=== PATIENT | female | born 1955 | race Caucasian/White ===

== ENCOUNTER 2019-12-27 05:56 | Day surgery (SDC) | payer BC ==
[2019-12-23 11:19] VITALS: BMI 26.6
--- NOTE | 2019-12-24 08:53 | HP ---
ANTICIPATED DATE OF SURGERY: She is scheduled for surgery on 12/27/2019. HISTORY OF PRESENT ILLNESS: Ms. Swain is a 64-year-old white female with previous complete hysterectomy, who has been noticing increasing vaginal bulge. She has no issues with her bowel movements but does have to bend over in certain positions to fully empty her bladder. She denies any stress incontinence issues. She has been doing Kegel exercises. She was seen in my office on 11/16 for evaluation. Noted at that time, she had a significant midline cystocele, grade 2 to 3. The upper vault was supported. PAST MEDICAL HISTORY: Significant for hypothyroidism; chronic hypertension; hyperlipidemia; rosacea; and a remote history of a lupus in the early , where she had apparent hemolytic anemia and DIC event. Currently, she has been with no evidence of reactivation of her lupus. PAST SURGICAL HISTORY: Tonsil, adenoids, TOMMY-BSO, colonoscopy, and LASIK surgery. CURRENT MEDICATIONS: 1. Synthroid 50 mcg per day. 2. Amlodipine 5 mg per day. 3. Pravastatin 20 mg per day. 4. Premarin 0.3 mg daily. 5. Sertraline 50 mg daily. 6. 1% facial cream. 7. Calcium. 8. Multivitamin. 9. Vitamin D. 10. Vitamin B12. ALLERGIES: 1. TYLENOL NO. 3. 2. ATIVAN. 3. CT SCAN DYE. 4. BUSPAR. THESE ALL WERE POSSIBLE INTERACTION WHEN SHE HAD AN OVERALL BODY ALLERGIC REACTION DURING THE HOSPITALIZATION CENTERED AROUND THE LUPUS ISSUE. SOCIAL HISTORY: She is a nonsmoker. No excessive alcohol use. She is a nurse. FAMILY HISTORY: Noncontributory. PHYSICAL EXAMINATION: VITAL SIGNS: Her height is 5 feet 4 inches, weight 159 pounds, BMI 27.3, blood pressure 120/72, pulse regular at 66, respiratory rate 18, and O2 saturation on room air 98%. HEENT: Within normal limits. CHEST: Clear to auscultation. HEART: Regular rate and rhythm, S1 and S2 heart sounds. No murmurs, rubs, or gallops. ABDOMEN: Soft, nontender, nondistended with no palpable masses. PELVIS: Vulva and vagina had no lesions. Vaginal vault was supported. She had a significant grade 2 to 3 cystocele. Minimal rectocele. No vaginal lesions were noted. No pelvic masses were noted. ASSESSMENT: This is a 64-year-old white female with previous hysterectomy with symptomatic grade 2 to 3 cystocele. PLAN: Plan is for an anterior repair scheduled for 12/27/2019. Risks and benefits of surgery have been discussed in detail. She is set for surgery. Job ID: [id number]
[2019-12-27] MEDS ORDERED: Fentanyl 100 MCG/2 ML VIAL ONE (06:42)
[2019-12-27] MEDS ORDERED: SUGAMMADEX SODIUM 200 MG/2 ML VIAL ONE (06:42)
[2019-12-27] MEDS ORDERED: Lidocaine 1% w/Epinephrine 1:100K 20 ML VIAL ONE (06:43)
[2019-12-27] MEDS ORDERED: Multivit, Therapeutic 1 TAB PO SCH (09:00)
[2019-12-27] MEDS ORDERED: Amlodipine 5 MG TAB PO SCH (09:00)
[2019-12-27] MEDS ORDERED: IVERMECTIN TOP SCH (09:00)
[2019-12-27] MEDS ORDERED: Cholecalciferol 1,000 UNITS (25 MCG) TAB PO SCH (09:00)
[2019-12-27] MEDS ORDERED: Cyanocobalamin (Vitamin B-12) 1,000 MCG TAB PO SCH (09:00)
[2019-12-27] MEDS ORDERED: Losartan 25 MG TAB PO SCH (09:00)
[2019-12-27] MEDS ORDERED: Calcium Carbonate 600 MG TAB PO SCH (09:00)
[2019-12-27] MEDS ORDERED: Estrogens, Conjugated 0.3 MG TAB PO SCH (09:00)
--- NOTE | 2019-12-27 09:05 | OP ---
DATE OF PROCEDURE: 12/27/2019 PREOPERATIVE DIAGNOSES: 1. Symptomatic grade 3 cystocele. 2. Prior hysterectomy. POSTOPERATIVE DIAGNOSES: 1. Symptomatic grade 3 cystocele. 2. Prior hysterectomy. PROCEDURE PERFORMED: Anterior repair. INTERVENTIONAL RADIOLOGY TECHNOLOGIST SURGEON: SPENCER Arriaga. ANESTHESIA: General. ESTIMATED BLOOD LOSS: Less than 25 mL. COMPLICATIONS: None. COUNTS: Correct x2. ANTIBIOTICS: 2 g Ancef on-call to the OR. FINDINGS: Anterior cystocele defect was reduced with clear urine returning from Etienne catheter postprocedure. DISPOSITION: Recovery room, stable. DESCRIPTION OF PROCEDURE: The patient previously received informed consent in regard to surgery. She was taken back to the operating room, where she received a general anesthetic agent without complications. She was placed in dorsal lithotomy position with the use of John stirrups and prepped and draped in usual sterile fashion. Etienne catheter was placed at this time. A weighted speculum was placed in the vagina and the vaginal cuff line was grasped at the two corners with Allis clamps. The anterior vaginal mucosa was infiltrated with 1% lidocaine with epinephrine. A vertical midline incision starting at the vaginal cuff up to 1.5 cm from the urethral meatus was made with Metzenbaum scissors. The edges of the anterior vaginal mucosa were grasped with Allis clamps to provide counter traction. The cystocele defect was dissected both sharply and bluntly, reducing the cystocele in its entirety. 0 Vicryl suture was then utilized to plicate the endopelvic fascia, starting most closely to the urethral meatus, plicating that in the midline with [id number] sutures. Once the cystocele defect had been repaired with numerous 0 Vicryl sutures, the anterior vaginal mucosa was then closed. Interrupted [id number] sutures of 2-0 Vicryl incorporating some of the endopelvic fascia were placed and the elongated vaginal mucosa near the apex was trimmed to allow for better vaginal mucosal closure. Hemostasis was confirmed. Clear urine was draining from the Etienne catheter. A moistened Kerlix was then utilized to pack the vaginal vault. The patient was awakened from anesthesia and transferred to recovery room in stable condition. Job ID: [id number]
[2019-12-27] MEDS ORDERED: Bisacodyl 10 MG SUPP PR PRN (09:55)
[2019-12-27] MEDS ORDERED: Simethicone Chewable 80 MG TAB PO PRN (09:55)
[2019-12-27] MEDS ORDERED: Ondansetron PF 4 MG/2 ML Vial IVP PRN (09:55)
[2019-12-27] MEDS ORDERED: diphenhydrAMINE 25 MG CAP PO PRN (09:55)
[2019-12-27] MEDS: Ketorolac Tromethamine 30 MG/ML VIAL IVP SCH ×3 (10:54→22:59)
[2019-12-27] MEDS ORDERED: Atropine Sulfate 0.4 mg/1 ml Vial ONE (12:26)
[2019-12-27] MEDS ORDERED: PROPOFOL 200 MG/20 ML VIAL ONE (12:26)
[2019-12-27] MEDS ORDERED: Lidocaine 1% PF 5 ML VIAL ONE (12:26)
[2019-12-27] MEDS ORDERED: Dexamethasone 20 MG/5 ML VIAL ONE (12:26)
[2019-12-27] MEDS ORDERED: Ondansetron PF 4 MG/2 ML Vial ONE (12:26)
[2019-12-27] MEDS ORDERED: Simvastatin 10 MG TAB PO SCH (21:00)
[2019-12-27] MEDS: traMADol HCl 50 MG TAB PO PRN (22:57)
[2019-12-28] MEDS: traMADol HCl 50 MG TAB PO PRN (05:36)
[2019-12-28] MEDS ORDERED: Levothyroxine Sodium 50 MCG TAB PO SCH (06:00)
[2019-12-28 06:02] LABS: Hemoglobin 12.8 g/dL (12.0-16.0); Mean Corpuscular HGB CONC 33.8 g/dL (32.0-36.0); Mean Corpuscular Volume 91.8 fL (78.0-98.0); Mean Platelet Volume 7.6 fL (7.4-10.4); Platelet Count 290 thou/uL (130-400); RBC Distribution Width 11.7 % (11.5-14.5); Red Blood Cell (RBC) Count 4.14 mill/uL (4.20-5.40); White Blood Cell (WBC) Count 8.6 thou/uL (4.8-10.8)
[2019-12-28] MEDS ORDERED: Ibuprofen 800 MG TAB PO SCH (08:00)
--- NOTE | 2019-12-28 08:22 | PDOC.EVN ---
Event Note - Event Note Event Note: Post op day 1 from anterior repair. Tolerating diet. First void 300 ml+ with 60 pvr...Vitals stable Plan: Repeat voiding trial x 1 --if remains adequate--discharge home. f/u in 4 weeks.
[2019-12-28 09:16] VITALS: BP 142/71; TEMP 97.7
--- NOTE | 2019-12-29 02:18 | DIS ---
DATE OF ADMISSION: 12/27/2019 DATE OF DISCHARGE: 12/28/2019 DATE OF SURGERY: 12/27/2019. DIAGNOSIS: Midline cystocele. SUMMARY OF HOSPITAL COURSE: Ms. Swain is a 64-year-old woman with previous complete hysterectomy, who is experiencing symptomatic cystocele. She underwent anterior repair without complications on 12/26. Postoperatively, she has done well. She is ambulating, tolerating regular diet and began voiding trials on postop day #1. Voids were 300+ with postvoid residuals less than 100 mL. She will be discharged home with [id number] ibuprofen and also p.r.n. tramadol. She has a followup in 4 weeks. Job ID: [id number]
== END 2019-12-28 09:51 | disposition home or self-care (01) ==
LOC: SDC 05:56 → 3SW 08:09 → SDC 12-28 09:51
PROVIDERS: ATTEND Obstetrics & Gynecology
PROC: 0JQC0ZZ Repair Pelvic Region Subcutaneous Tissue and Fascia, Open Approach (ICD-10-PCS; principal; 2019-12-27)
DX: N81.11 Cystocele, midline (principal); E03.9 Hypothyroidism, unspecified; I10 Essential (primary) hypertension; E78.5 Hyperlipidemia, unspecified; M32.9 Systemic lupus erythematosus, unspecified; Z79.899 Other long term (current) drug therapy; Z88.5 Allergy status to narcotic agent; Z88.8 Allergy status to other drugs, medicaments and biological substances; Z88.6 Allergy status to analgesic agent; Z91.041 Radiographic dye allergy status; Z90.710 Acquired absence of both cervix and uterus
CPT/HCPCS: 36415; 85027; 86850; 86900; 86901; J0461; J0690; J1100; J1885; J2405; J2704; J3010; Q0163

== ENCOUNTER 2022-04-16 08:20 | Outpatient (CLI) | payer MEDICARE | END 2022-04-16 08:21 | disposition home or self-care (01) | LOC: BICMAMMO 08:20 | PROVIDERS: ATTEND Family Medicine | DX: M81.0 Age-related osteoporosis without current pathological fracture (principal); M85.89 Other specified disorders of bone density and structure, multiple sites | CPT/HCPCS: 77080 ==

== ENCOUNTER 2022-11-22 09:17 | Outpatient (CLI) | payer MEDICARE | END 2022-11-22 09:18 | disposition home or self-care (01) | LOC: BICMAMMO 09:17 | PROVIDERS: ATTEND Family Medicine | DX: Z12.31 Encounter for screening mammogram for malignant neoplasm of breast (principal) | CPT/HCPCS: 77063; 77067 ==

== ENCOUNTER 2024-12-03 08:40 | Outpatient (CLI) | payer MEDICARE | END 2024-12-03 08:41 | disposition home or self-care (01) | LOC: BICMAMMO 08:40 | PROVIDERS: ATTEND Internal Medicine | DX: Z12.31 Encounter for screening mammogram for malignant neoplasm of breast (principal) | CPT/HCPCS: 77063; 77067 ==